=== PATIENT | female | born 2000 | race Caucasian/White ===

== ENCOUNTER 2018-01-17 15:42 | Emergency (ER) | payer BC ==
--- NOTE | 2018-01-17 16:40 | EDM.PDOC ---
ED HPI GENERAL MEDICAL PROBLEM - General Chief Complaint: General Stated Complaint: POSSIBLE DEHYDRATION, CHEST TIGHTNESS Time Seen by Provider: 01/17/18 15:52 Source of Information: Reports: Patient History Limitations: Reports: No Limitations - History of Present Illness INITIAL COMMENTS - FREE TEXT/NARRATIVE: 17 y.o.w.f came to the ed feeling dehydrated due to severe diarrhea several times a day. Ni N/V no F/C or any other acute medical issues. BP 132/92 pulse 93 rr 20 temp 36.6 pulse ox 98% on RA Onset Date: 01/15/18 Onset Time: 08:00 Duration: Day(s):, Intermittent Location: Reports: Abdomen Quality: Reports: Same as Previous Episode Severity: Mild Improves with: Reports: Medication Context: Reports: Sick Contact Associated Symptoms: Reports: No Other Symptoms Throat Pain Score (Numeric/FACES): 3 - Related Data Allergies Allergy/AdvReac Type Severity Reaction Status Date / Time No Known Allergies Allergy Verified 01/17/18 15:50 Home Meds: Home Meds NK [No Known Home Meds] 01/17/18 [History] Past Medical History - Past Health History Medical/Surgical History: Denies Medical/Surgical History Social & Family History - Tobacco Use Smoking Status *Q: Never Smoker - Caffeine Use Caffeine Use: Reports: Soda - Recreational Drug Use Recreational Drug Use: No ED ROS GENERAL - Review of Systems Review Of Systems: See Below Constitutional: Reports: No Symptoms HEENT: Reports: No Symptoms Respiratory: Reports: No Symptoms Cardiovascular: Reports: No Symptoms Endocrine: Reports: No Symptoms GI/Abdominal: Reports: Diarrhea : Reports: No Symptoms Musculoskeletal: Reports: No Symptoms Skin: Reports: No Symptoms Neurological: Reports: No Symptoms Psychiatric: Reports: No Symptoms Hematologic/Lymphatic: Reports: No Symptoms Immunologic: Reports: No Symptoms ED EXAM, GENERAL - Physical Exam Exam: See Below Exam Limited By: No Limitations General Appearance: Alert, WD/WN, Mild Distress Eye Exam: Bilateral Eye: Normal Inspection Ears: Normal External Exam Ear Exam: Bilateral Ear: Auricle Normal Nose: Normal Inspection, Normal Mucosa, No Blood Throat/Mouth: Normal Inspection, Normal Lips, Normal Teeth, Normal Gums, No Airway Compromise Head: Atraumatic, Normocephalic Neck: Normal Inspection, Supple, Non-Tender, Full Range of Motion Respiratory/Chest: No Respiratory Distress, Lungs Clear, Normal Breath Sounds, No Accessory Muscle Use, Chest Non-Tender Cardiovascular: Normal Peripheral Pulses, Regular Rate, Rhythm, No Edema, No Gallop, No JVD, No Murmur, No Rub Peripheral Pulses: 1+: Radial (R) GI/Abdominal: Normal Bowel Sounds, Soft, Non-Tender, No Organomegaly, No Abnormal Bruit, No Mass (Female) Exam: Deferred Rectal (Female) Exam: Deferred Back Exam: Normal Inspection, Full Range of Motion Extremities: Normal Inspection, Normal Range of Motion, Non-Tender, No Pedal Edema Neurological: Alert, Oriented, CN II-XII Intact, Normal Cognition, Normal Gait Psychiatric: Normal Affect, Normal Mood Skin Exam: Warm, Dry, Intact, Normal Color, No Rash Lymphatic: No Adenopathy Course - Vital Signs Text/Narrative:: 17 y.o.w.f came to the ed feeling dehydrated due to severe diarrhea several times a day. Ni N/V no F/C or any other acute medical issues. BP 132/92 pulse 93 on RA temp 36.6 pulse ox 98% on RA PE: WNWD W F NAD Labs: CBC and BMP nl, UDS pos for THC products Impression: Pos Drug screen, Feeling dehydrated Tx: Pt can take water well PO Reexam: D/C with instructions Plan: D/C with instructions Last Recorded V/S: Last Vital Signs Temp 36.7 C 01/17/18 15:52 Pulse 59 L 01/17/18 16:45 Resp 18 01/17/18 15:52 BP 115/63 01/17/18 16:45 Pulse Ox 97 01/17/18 15:52 - Orders/Labs/Meds Labs: Laboratory Tests 01/17/18 01/17/18 01/17/18 Range/Units 15:53 15:53 15:55 WBC (4.5-12.0) X10-3/uL RBC (3.23-5.20) x10(6)uL Hgb (11.5-15.5) g/dL Hct (30.0-51.3) % MCV (80-96) fL MCH (27.7-33.6) pg MCHC (32.2-35.4) g/dL RDW (11.5-15.5) % Plt Count (125-369) X10(3)uL MPV (7.4-10.4) fL Neut % (Auto) (46-82) % Lymph % (Auto) (13-37) % [place] % (Auto) (4-12) % Eos % (Auto) (1.0-5.0) % Baso % (Auto) (0-2) % Neut # (Auto) (1.6-8.3) # Lymph # (Auto) (0.6-5.0) # [place] # (Auto) (0.0-1.3) # Eos # (Auto) (0.0-0.8) # Baso # (Auto) (0.0-0.2) # Sodium (135-145) mmol/L Potassium (3.5-5.3) mmol/L Chloride (100-110) mmol/L Carbon Dioxide (21-32) mmol/L BUN (7-18) mg/dL Creatinine (0.55-1.02) mg/dL Est Cr Clr Drug Dosing mL/min Estimated GFR (MDRD) (>60) BUN/Creatinine Ratio (9-20) Glucose (80-116) mg/dL Calcium (8.2-10.1) mg/dL Urine Color Yellow (YELLOW) Urine Appearance Clear (CLEAR) Urine pH 5.0 (5.0-6.5) Ur Specific [place] 1.015 (1.010-1.025) Urine Protein Negative (NEGATIVE) mg/dL Urine Glucose (UA) Normal (NEGATIVE) mg/dL Urine Ketones Negative (NEGATIVE) mg/dL Urine Occult Blood Negative (NEGATIVE) Urine Nitrite Negative (NEGATIVE) Urine Bilirubin Negative (NEGATIVE) Urine Urobilinogen Normal (NEGATIVE) mg/dL Ur Leukocyte Esterase Negative (NEGATIVE) Urine RBC 0-5 (0) Urine WBC 0-5 (0) Ur Squamous Epith Cells Few H (NS,R,O) Urine Bacteria Rare H (NS) Urine HCG, Qual Negative (NEGATIVE) Urine Opiates Screen Negative (NEGATIVE) Ur Oxycodone Screen Negative (NEGATIVE) Ur Propoxyphene Screen Negative (NEGATIVE) Ur Barbituates Screen Negative (NEGATIVE) Ur Tricyclics Screen Negative (NEGATIVE) Ur Phencyclidine Scrn Negative (NEGATIVE) Ur Amphetamine Screen Negative (NEGATIVE) Urine MDMA Screen Negative (NEGATIVE) U Benzodiazepines Scrn Negative (NEGATIVE) U Cocaine Metab Screen Negative (NEGATIVE) U Marijuana (THC) Screen Positive H (NEGATIVE) 01/17/18 01/17/18 Range/Units 16:00 16:00 WBC 8.9 (4.5-12.0) X10-3/uL RBC 4.54 (3.23-5.20) x10(6)uL Hgb 14.2 (11.5-15.5) g/dL Hct 42.1 (30.0-51.3) % MCV 92.8 (80-96) fL MCH 31.2 (27.7-33.6) pg MCHC 33.6 (32.2-35.4) g/dL RDW 12.5 (11.5-15.5) % Plt Count 284 (125-369) X10(3)uL MPV 7.7 (7.4-10.4) fL Neut % (Auto) 70.4 (46-82) % Lymph % (Auto) 21.1 (13-37) % [place] % (Auto) 6.8 (4-12) % Eos % (Auto) 1 (1.0-5.0) % Baso % (Auto) 0 (0-2) % Neut # (Auto) 6.3 (1.6-8.3) # Lymph # (Auto) 1.9 (0.6-5.0) # [place] # (Auto) 0.6 (0.0-1.3) # Eos # (Auto) 0.1 (0.0-0.8) # Baso # (Auto) 0.0 (0.0-0.2) # Sodium 142 (135-145) mmol/L Potassium 3.8 (3.5-5.3) mmol/L Chloride 107 (100-110) mmol/L Carbon Dioxide 23 (21-32) mmol/L BUN 10 (7-18) mg/dL Creatinine 0.9 (0.55-1.02) mg/dL Est Cr Clr Drug Dosing 108.72 mL/min Estimated GFR (MDRD) > 60 (>60) BUN/Creatinine Ratio 11.1 (9-20) Glucose 93 (80-116) mg/dL Calcium 9.4 (8.2-10.1) mg/dL Urine Color (YELLOW) Urine Appearance (CLEAR) Urine pH (5.0-6.5) Ur Specific [place] (1.010-1.025) Urine Protein (NEGATIVE) mg/dL Urine Glucose (UA) (NEGATIVE) mg/dL Urine Ketones (NEGATIVE) mg/dL Urine Occult Blood (NEGATIVE) Urine Nitrite (NEGATIVE) Urine Bilirubin (NEGATIVE) Urine Urobilinogen (NEGATIVE) mg/dL Ur Leukocyte Esterase (NEGATIVE) Urine RBC (0) Urine WBC (0) Ur Squamous Epith Cells (NS,R,O) Urine Bacteria (NS) Urine HCG, Qual (NEGATIVE) Urine Opiates Screen (NEGATIVE) Ur Oxycodone Screen (NEGATIVE) Ur Propoxyphene Screen (NEGATIVE) Ur Barbituates Screen (NEGATIVE) Ur Tricyclics Screen (NEGATIVE) Ur Phencyclidine Scrn (NEGATIVE) Ur Amphetamine Screen (NEGATIVE) Urine MDMA Screen (NEGATIVE) U Benzodiazepines Scrn (NEGATIVE) U Cocaine Metab Screen (NEGATIVE) U Marijuana (THC) Screen (NEGATIVE) Departure - Departure Time of Disposition: 16:38 Disposition: Home, Self-Care 01 Condition: Good Clinical Impression: Flu-like symptoms, Nasal congestion, Positive urine drug screen - Discharge Information Referrals: PCP,Not In Area [Primary Care Provider] - Forms: ED Department Discharge Additional Instructions: Please take motrin, Tylenol for pain and temperature, please f/u, come back if your symptoms get worse acutely
== END 2018-01-17 16:45 | disposition home or self-care (01) ==
LOC: FB.ED 15:42
DX: R09.81 Nasal congestion (principal); R82.5 Elevated urine levels of drugs, medicaments and biological substances
CPT/HCPCS: 36415; 80048; 80305; 81001; 81025; 85025; 87804; 99284